=== PATIENT | female | born 1950 | race Asian ===

== ENCOUNTER 2018-08-17 17:34 | Observation (INO) | payer MEDICARE, MEDICAID ==
[~2018-08-17] VITALS: Ht 162.6 cm; Wt 64.8 kg
[2018-08-17] MEDS ORDERED: ACETAMINOPHEN 500 MG TABLET ONE (17:37)
[2018-08-17] MEDS ORDERED: KETOROLAC 30 MG/1 ML ONE (17:55)
[2018-08-17] MEDS ORDERED: ACETAMINOPHEN 500 MG TABLET PO ONE (18:00)
[2018-08-17 18:18] LABS: BASOPHILS % (AUTO) 0 % (0-1); EOSINOPHILS % (AUTO) 0 % (1-7); LYMPHOCYTES # (AUTO) 0.41 x10^3/uL (1-3.4); LYMPHOCYTES % (AUTO) 6 % (22-44); MD NO; MEAN CORPUSCULAR HEMOGLOBIN 33.6 pg (27.0-34.8); MEAN CORPUSCULAR HGB CONC 34.1 g/dL (32.4-35.8); MEAN CORPUSCULAR VOLUME 98.6 fL (80-100); MEAN PLATELET VOLUME 8.3 fL (7.4-10.4); MONOCYTES # (AUTO) 0.07 x10^3/uL (0.2-0.8); MONOCYTES % (AUTO) 1 % (2-9); NEUTROPHILS # (AUTO) 6.54 x10^3/uL (1.8-6.8); NEUTROPHILS % (AUTO) 93 % (42-75); PLATELET COUNT 161 x10^3/uL (130-400); RED BLOOD COUNT 3.72 x10^6/uL (3.82-5.3); RED CELL DISTRIBUTION WIDTH 13.1 % (9.6-15.2)
[2018-08-17 18:20] LABS: MICROSCOPIC AUTO
[2018-08-17 18:21] LABS: CULTURE INDICATED? NO
[2018-08-17 18:26] LABS: ALANINE AMINOTRANSFERASE 16 U/L (12-78); ALBUMIN 3.4 g/dL (3.4-5.0); ANION GAP 6 mmol/L (5-15); CALCIUM 8.2 mg/dL (8.5-10.1); CHLORIDE 106 mmol/L (98-107)
[2018-08-17 18:31] LABS: ALKALINE PHOSPHATASE 73 U/L (45-117); BILIRUBIN,TOTAL 0.6 mg/dL (0.2-1.0); CREATININE 0.76 mg/dL (0.55-1.02); TOTAL PROTEIN 7.2 g/dL (6.4-8.2); TROPONIN I < 0.015 ng/mL (0.000-0.045)
[2018-08-17] MEDS ORDERED: KETOROLAC 30 MG/1 ML IV ONE (19:00)
[2018-08-17] MEDS ORDERED: SODIUM CHLORIDE FLUSH 10ML SYR IVF ONE (19:00)
[2018-08-17] MEDS ORDERED: SODIUM CHLORIDE 0.9% 1,000ML IVBOLUS ONE (19:00)
[2018-08-17 19:15] LABS: RAPID INFLUENZA A Negative (Negative); RAPID INFLUENZA B Negative (Negative)
[2018-08-17] MEDS ORDERED: TEMAZEPAM 15 MG CAPSULE PO PRN (20:00)
[2018-08-17] MEDS ORDERED: ACETAMINOPHEN 325 MG TABLET PO PRN (20:00)
[2018-08-17] MEDS ORDERED: KETOROLAC 30 MG/1 ML IV PRN (20:00)
[2018-08-17] MEDS ORDERED: ONDANSETRON ODT 4 MG PO PRN (20:00)
[2018-08-17] MEDS ORDERED: DOCUSATE 100 MG CAPSULE PO PRN (20:00)
[2018-08-17 22:00] VITALS: BP 99/52
[2018-08-17] MEDS: SODIUM CHLORIDE 0.9% 1,000 ML IV SCH (22:16)
[2018-08-18 01:48] LABS: TROPONIN I 0.019 ng/mL (0.000-0.045)
[2018-08-18 01:51] VITALS: BP 91/54
[2018-08-18 07:09] LABS: BASOPHILS # (AUTO) 0.02 x10^3/uL (0-0.1); BASOPHILS % (AUTO) 0 % (0-1); EOSINOPHILS # (AUTO) 0.02 x10^3/uL (0-0.4); EOSINOPHILS % (AUTO) 0 % (1-7); LYMPHOCYTES # (AUTO) 1.37 x10^3/uL (1-3.4); LYMPHOCYTES % (AUTO) 25 % (22-44); MD NO; MEAN CORPUSCULAR HEMOGLOBIN 32.8 pg (27.0-34.8); MEAN CORPUSCULAR HGB CONC 32.8 g/dL (32.4-35.8); MEAN CORPUSCULAR VOLUME 99.9 fL (80-100); MEAN PLATELET VOLUME 8.1 fL (7.4-10.4); MONOCYTES # (AUTO) 0.68 x10^3/uL (0.2-0.8); MONOCYTES % (AUTO) 13 % (2-9); NEUTROPHILS % (AUTO) 61 % (42-75); PLATELET COUNT 146 x10^3/uL (130-400); RED CELL DISTRIBUTION WIDTH 13.4 % (9.6-15.2)
[2018-08-18 07:11] LABS: ANION GAP 4 mmol/L (5-15); CALCIUM 8.2 mg/dL (8.5-10.1); CHLORIDE 113 mmol/L (98-107); CREATININE 0.67 mg/dL (0.55-1.02)
[2018-08-18 07:14] LABS: TROPONIN I 0.016 ng/mL (0.000-0.045)
[2018-08-18 07:34] VITALS: BP 92/52
[2018-08-18 08:20] LABS: CHOL/HDL RATIO 2.3; LDL/HDL RATIO 1.1 (0.5-3.0)
[2018-08-18 08:26] LABS: HEMOGLOBIN A1C 5.3 % (4.2-6.3)
[2018-08-18] MEDS ORDERED: REGADENOSON 0.4 MG/5 ML SYRINGE ONE (08:38)
[2018-08-18] MEDS: ASPIRIN 81 MG TABLET EC PO SCH (09:56)
[2018-08-18] MEDS: SODIUM CHLORIDE 0.9% 1,000 ML IV SCH ×2 (12:45→22:30)
[2018-08-18 12:51] VITALS: BP 99/55
[2018-08-18 18:45] VITALS: BP 96/58
[2018-08-19 02:04] VITALS: BP 122/67
[2018-08-19] MEDS: ASPIRIN 81 MG TABLET EC PO SCH (05:20)
[2018-08-19 06:18] LABS: ALBUMIN 3.2 g/dL (3.4-5.0); ANION GAP 7 mmol/L (5-15); CALCIUM 8.6 mg/dL (8.5-10.1); CHLORIDE 109 mmol/L (98-107)
[2018-08-19 06:19] LABS: BASOPHILS # (AUTO) 0.01 x10^3/uL (0-0.1); BASOPHILS % (AUTO) 0 % (0-1); EOSINOPHILS # (AUTO) 0.05 x10^3/uL (0-0.4); EOSINOPHILS % (AUTO) 1 % (1-7); LYMPHOCYTES # (AUTO) 1.72 x10^3/uL (1-3.4); LYMPHOCYTES % (AUTO) 26 % (22-44); MD NO; MEAN CORPUSCULAR HEMOGLOBIN 33.1 pg (27.0-34.8); MEAN CORPUSCULAR HGB CONC 33.6 g/dL (32.4-35.8); MEAN CORPUSCULAR VOLUME 98.6 fL (80-100); MEAN PLATELET VOLUME 8.2 fL (7.4-10.4); MONOCYTES # (AUTO) 0.62 x10^3/uL (0.2-0.8); MONOCYTES % (AUTO) 10 % (2-9); NEUTROPHILS # (AUTO) 4.12 x10^3/uL (1.8-6.8); NEUTROPHILS % (AUTO) 63 % (42-75); PLATELET COUNT 171 x10^3/uL (130-400); RED BLOOD COUNT 3.92 x10^6/uL (3.82-5.3); RED CELL DISTRIBUTION WIDTH 13.2 % (9.6-15.2)
[2018-08-19 06:23] LABS: ALANINE AMINOTRANSFERASE 17 U/L (12-78); ALKALINE PHOSPHATASE 66 U/L (45-117); BILIRUBIN,TOTAL 0.4 mg/dL (0.2-1.0); CREATININE 0.68 mg/dL (0.55-1.02); TOTAL PROTEIN 6.9 g/dL (6.4-8.2)
[2018-08-19 08:16] VITALS: BP 115/71
[2018-08-19] MEDS: SODIUM CHLORIDE 0.9% 1,000 ML IV SCH (10:22)
[2018-08-19] MEDS ORDERED: ASPI81TA45 PO (11:20)
[2018-08-19] MEDS ORDERED: ATOR10TA PO (11:20)
== END 2018-08-19 13:10 | disposition home or self-care (01) ==
LOC: ED 18:32 → INTOOBSV 19:49 → EDIP 19:49 → 5SO 20:37 → DCLOUNGE 08-19 13:08
PROVIDERS: ADMIT Internal Medicine; ATTEND Internal Medicine
DX: R07.89 Other chest pain (principal); R20.0 Anesthesia of skin; Z79.82 Long term (current) use of aspirin
CPT/HCPCS: 36415; 70450; 70551; 71045; 78452; 80048; 80053; 80061; 81001; 83036; 83605; 83735; 83880; 84145; 84484; 85025; 85379; 87040; 87081; 87400; 87880; 93005; 93017; 93306; 93880; 96374; 97161; 99284; A9502; C9898; G0378; J1885; J2785; J7030